=== PATIENT | female | born 1985 | race Caucasian/White ===

== ENCOUNTER 2017-07-03 09:30 | Emergency (ER) | payer OTHER ==
[~2017-07-03] VITALS: Ht 170.2 cm; Wt 87.7 kg
[2017-07-03 10:21] LABS: INFLUENZA A NONE DETECTED (NONE DETECT); INFLUENZA B NONE DETECTED (NONE DETECT)
[2017-07-03 11:15] VITALS: BP 110/60
== END 2017-07-03 11:15 | disposition home or self-care (01) | DRG 866 ==
LOC: ED 09:30
PROVIDERS: Emergency Medicine
DX: B34.9 Viral infection, unspecified (principal); M79.1 Myalgia; R50.9 Fever, unspecified

== ENCOUNTER 2017-09-02 19:39 | Emergency (ER) | payer OTHER ==
[~2017-09-02] VITALS: Ht 170.2 cm; Wt 91.6 kg
[2017-09-02 20:35] LABS: HEMATOCRIT 38.3 % (37.0-47.0); HEMOGLOBIN 12.8 g/dl (12.0-16.0); IMMATURE GRANULOCYTES 0.5 % (0.0-1.0); MEAN CELL VOLUME 92.5 fL CALC (80.0-100.0); MEAN CORPUSCULAR HGB 30.9 pG CALC (26.0-32.0); MEAN CORPUSCULAR HGB CONC 33.4 g/L CALC (32.0-36.0); NEUT# 6.29 thou/uL (2.00-7.15); RED BLOOD COUNT 4.14 mill/uL (4.20-5.60); RED CELL DISTRI WIDTH 13.1 % (11.5-15.5)
[2017-09-02 21:53] VITALS: BP 101/65
== END 2017-09-02 21:54 | disposition home or self-care (01) | DRG 782 ==
LOC: ED 19:39
PROVIDERS: Family Medicine
DX: O44.32 Partial placenta previa with hemorrhage, second trimester (principal); Z3A.16 16 weeks gestation of pregnancy

== ENCOUNTER 2018-07-14 17:16 | Emergency (ER) | payer OTHER ==
[~2018-07-14] VITALS: Ht 170.2 cm; Wt 100.0 kg
[2018-07-14 18:09] VITALS: BP 107/63
== END 2018-07-14 18:09 | disposition home or self-care (01) ==
LOC: ED 17:16
DX: B34.9 Viral infection, unspecified (principal); R05 Cough; R09.81 Nasal congestion

== ENCOUNTER 2020-10-10 10:03 | Emergency (ER) | payer SELFPAY ==
[~2020-10-10 10:03] MED LIST: AUGMENTIN500TAB PO
[2020-10-10] MEDS ORDERED: AMOX/K CLAV875 M1 PO (11:18)
[2020-10-10] MEDS ORDERED: LIDOCAINE HCL VIS2 % PO (12:05)
[2020-10-10] MEDS ORDERED: TORADOL PO (12:05)
[2020-10-10 12:08] VITALS: BP 134/83
== END 2020-10-10 12:08 | disposition home or self-care (01) | DRG 153 ==
LOC: ED 10:03
DX: J02.9 Acute pharyngitis, unspecified (principal); R53.83 Other fatigue; Z20.822 Contact with and (suspected) exposure to COVID-19

== ENCOUNTER 2021-04-18 10:04 | Emergency (ER) | payer OTHER ==
[~2021-04-18] VITALS: Ht 170.2 cm; Wt 84.0 kg
[~2021-04-18 10:04] MED LIST changes: +AMOX/K CLAV875 M1 PO; +LIDOCAINE HCL VIS2 % PO; +TORADOL PO
[2021-04-18 12:30] VITALS: BP 113/56
[2021-04-18] MEDS ORDERED: FLEXERIL5 M1 PO (14:00)
[2021-04-18] MEDS ORDERED: IBUPROFEN600 MG PO (14:00)
== END 2021-04-18 14:00 | disposition home or self-care (01) | DRG 552 ==
LOC: ED 10:04
DX: S13.4XXA Sprain of ligaments of cervical spine, initial encounter (principal); M54.6 Pain in thoracic spine; M54.50 Low back pain, unspecified; M62.830 Muscle spasm of back; V43.52XA Car driver injured in collision with other type car in traffic accident, initial encounter

== ENCOUNTER 2023-01-22 09:37 | Emergency (ER) | payer OTHER ==
[~2023-01-22] VITALS: Ht 170.2 cm; Wt 79.3 kg
[~2023-01-22 09:37] MED LIST changes: +FLEXERIL5 M1 PO; +IBUPROFEN600 MG PO
[2023-01-22] MEDS ORDERED: PERCOCET 5/321 COMBO PO (09:49)
[2023-01-22] MEDS ORDERED: DILAUDID2 MG PO (11:17)
[2023-01-22] MEDS ORDERED: ZOFRAN4 MG/TAB PO (11:20)
[2023-01-22 11:40] VITALS: BP 114/64
== END 2023-01-22 11:41 | disposition home or self-care (01) | DRG 552 ==
LOC: ED 09:37
DX: M51.36 Other intervertebral disc degeneration, lumbar region (principal)